=== PATIENT | male | born 1940 | race Caucasian/White ===

== ENCOUNTER 2020-06-23 09:26 | Inpatient (IN) ==
[2020-06-23] MEDS ORDERED: 0.9 % SODIUM CHLORIDE 1,000 ML IV ONE ×4 (09:41→16:31)
[2020-06-23] MEDS ORDERED: HYDROmorphone 0.5 MG/0.5 ML SYRINGE IV PRN (09:44)
[2020-06-23] MEDS ORDERED: ONDANSETRON 4 MG/2 ML VIAL IV ONE (09:44)
[2020-06-23] MEDS ORDERED: LEVOFLOXACIN 500 MG/100 ML BAG IV ONE (10:09)
--- NOTE | 2020-06-23 10:12 | Emergency Department Note ---
Male Urogenital HPI General Chief complaint: Urogenital-Male Stated complaint: possible UTI, elevated HR, sent from minor care. Time Seen by Provider: 06/23/20 09:42 Source: patient Mode of arrival: wheelchair Limitations: no limitations History of Present Illness HPI Narrative: Narrative: This 79-year-old gentleman was sent over for a fever of 101.5 at home. He was afebrile however at urgent care -Dr. Toth saw him there and sent him over out of concern for possible urosepsis as he was quite tachycardic in the 130s. Danitza rapid test for influenza a and B and Covid were all negative at urgent care. He denies any shortness of breath trouble breathing. He was actually initially seen 4 days ago for fecal impaction which is since resolved-with enema. He had urinary retention with that. He is now urinating well Related Data Home Medications Medication Instructions Recorded Confirmed omega-3 fatty acids 4,000 mg PO DAILY 03/29/19 06/23/20 vitamin B complex 1 each PO DAILY 03/29/19 06/23/20 acetaminophen 650 mg 650 mg PO Q12H 02/20/20 06/23/20 tablet,extended release loratadine 10 mg capsule 10 mg PO QDAY 05/13/20 06/23/20 Previous Rx's Medication Instructions Recorded fluticasone propionate 50 2 spray INTRANASAL QDAY #16 g 08/01/18 mcg/actuation nasal spray,suspension Allergies Allergy/AdvReac Type Severity Reaction Status Date / Time latex Allergy Intermediate Rash Verified 06/20/20 18:37 pseudoephedrine Allergy Intermediate Rash Verified 06/20/20 18:37 [From Actifed] shellfish derived Allergy Intermediate Swelling Verified 06/20/20 18:37 triprolidine [From Actifed] Allergy Intermediate Rash Verified 06/20/20 18:37 Review of Systems ROS ROS Narrative: Narrative: All systems ED: reviewed and negative except as stated. 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) Obstructive sleep apnea syndrome (Chronic) Erectile dysfunction (Chronic) DM type 2 (diabetes mellitus, type 2) (Chronic) Hx of colonoscopy (Chronic 03/28/14) Hx of cholecystectomy (Chronic) Hx of arthroscopy (Chronic) Hx of arthroplasty (Chronic) History of tobacco use (Chronic) Sleep apnea (Chronic) Generalized osteoarthrosis, 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 Hemorrhoid (Chronic) Hemorrhoids, external (Chronic) 04/03/14-Dr. Hernandez patient will use OTC fiber powder since this has helped in the past. Avoid constipation/keep stools loose if ongoing pain, no improvement, can refer to surgery for intervention High triglycerides (Chronic) Mild, improved with fish oil; [facility] with LDL cholesterol acceptable and not requiring reinstitution. History of tobacco use (Chronic) Distant minimal ex smoker, last chest x-ray in 2008 Hyperlipidemia (Chronic) Impacted cerumen (Chronic) Medicare annual wellness visit, subsequent (Resolved) Obesity (Chronic) Obstructive sleep apnea syndrome (Chronic) Pulmonary embolism and infarction (Chronic) Pure hyperglyceridemia (Resolved 05/22/13) Sensory hearing loss (Chronic) Sleep apnea (Chronic) with positive sleep study in February of 2012-Dr. Ranjan Jerry. gets benefit with machine. reports use 100%. able to get 8 hours of rested sleep. no daytime fatigue will send refill replacement request to [facility] History History of left shoulder replacement (Acute) History of orthopedic surgery (Chronic 02/22/17) Bilateral foot/ankle fusion, removal hardware History of total bilateral knee replacement (Chronic ~2011) Hx of arthroplasty (Chronic) July of 2011-Right knee, Left knee in December Hx of arthroscopy (Chronic) Status post arthroscopy on right shoulder in 2007 Hx of cholecystectomy (Chronic) Status post open cholecystectomy in 2002 with isolated post op pulmonary embolus,anticoagulated to September of 2003; lower extremity Doppler normal in August of 2007. Hx of colonoscopy (Chronic 03/28/14) 03/28/14-11/21/06-Normal colon, internal hemorrhoids ten year sequencing with Dr. Abreu Family History Brother Diabetes mellitus Half brother Other Cerebrovascular accident (CVA) Social History Smoking Status: Former smoker Alcohol Intake Frequency: former alcohol drinker Substance Use: does not use Exam Narrative Narrative: Narrative: No acute distress resting comfortably. Able to answer questions appropriately. He is normocephalic atraumatic. Alert oriented. Conjunctive are clear sclerae white nonicteric. No nasal discharge or congestion. Oropharynx pink and moist. Neck is supple without lymphadenopathy or thyromegaly. Heart is regular rhythm but he is tachycardic both on the monitor and with auscultation. Lungs are clear to auscultation bilaterally with out wheezes rales rhonchi or respiratory distress. Abdomen is soft protuberant nontender. No peritoneal signs or guarding. No significant pedal edema. General Limitations: no limitations Course Vital Signs Vital signs: Vital Signs Temperature 96.8 F L 06/23/20 09:26 Pulse Rate 150 H 06/23/20 09:26 Respiratory Rate 20 06/23/20 09:26 Blood Pressure 178/144 06/23/20 09:26 Pulse Oximetry (%) 97 06/23/20 09:26 Temperature 96.8 F L 06/23/20 09:26 Pulse Rate 101 H 06/23/20 12:47 Respiratory Rate 18 06/23/20 12:47 Blood Pressure 107/96 06/23/20 12:47 Pulse Oximetry (%) 98 06/23/20 12:47 MDM MDM Narrative Medical decision making narrative: Narrative: He is currently afebrile and normoxic but he is significantly tachycardic. 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 We did a bladder scan and he only had 86 mL in. Ordered laboratory. X-rays ordered to check on stool burden. Blood cultures and start Levaquin-suspect prostatitis versus UTI with possible sepsis versus SIRS. Urine POC showed evidence of nitrites and leukocytes so this is sent for microscopy and culture. Elevated lactic acid and leukocytes consistent with sepsis-he will require admission. He remains tachycardic although less so with IV fluids and treatment. Blood pressure is normal and he remains. Blood sugar was elevated on laboratory, but he is a known diabetic and this is before fluids were started-this will likely decrease with hydration so did not give insulin. Procalcitonin is markedly elevated Discussed with hospitalist, Dr. Ramirez who agreed to accept the patient for further care and evaluation. He recommended we add Rocephin to the Levaquin. I will repeat the lactic acid now that he has had a couple liters of IV fluid. Lab Data Lab results reviewed: Yes I reviewed the patient's lab results. Result diagrams: 06/23/20 09:41 06/23/20 09:41 Labs: Lab Results 06/23/20 06/23/20 06/23/20 Range/Units 09:41 09:41 09:41 WBC 22.1 H (4.5-11.0) K/mcL RBC 5.22 (4.50-5.90) M/mcL Hgb 16.1 (13.5-16.5) g/dL Hct 48.4 (41.0-55.0) % MCV 92.7 (80.0-100.0) fL MCH 30.8 (26.0-34.0) pg MCHC 33.3 (31.0-36.0) g/dL RDW 12.9 (11.5-14.5) % Plt Count 271 (140-440) K/mcL MPV 10.5 H (7.4-10.4) fL Seg Neutrophils % 77 (38-78) % Band Neutrophils % 5 (0-10) % Lymphocytes % 9 L (15-49) % Monocytes % (Manual) 8 (1-12) % Myelocytes % 1 % Platelet Estimate Normal (Normal) RBC Morphology Normal (Normal) VBG Lactic Acid 4.0 H* (0.5-2.0) mmol/L Sodium 131 L (133-145) mmol/L Potassium 4.0 (3.3-5.1) mmol/L Chloride 97 (96-108) mmol/L Carbon Dioxide 19 L (22-30) mmol/L Anion Gap 15.0 (8.0-16.0) BUN 16 (8-23) mg/dL Creatinine 1.1 (0.7-1.2) mg/dL GFR Calculation 64 Glucose 336 H (70-105) mg/dL Calcium 9.6 (8.6-10.4) mg/dL Total Bilirubin 1.3 H (0.1-1.0) mg/dL AST 22 (<40) U/L ALT 31 (<40) U/L Alkaline Phosphatase 78 (39-117) U/L C-Reactive Protein (0.03-0.80) mg/dL Total Protein 7.7 (5.9-8.4) gm/dL Albumin 3.8 (3.2-5.2) gm/dL Globulin 3.9 H (2.2-3.7) gm/dL Albumin/Globulin Ratio 1.0 (1.0-2.3) Lipase (7-60) U/L Procalcitonin (<0.10) ng/mL Urine Color Urine Appearance (Clear) Urine pH (5.0-9.0) Ur Specific [place] (1.000-1.035) Urine Protein (Negative) mg/dL Urine Glucose (UA) (Negative) mg/dL Urine Ketones (Negative) mg/dL Urine Occult Blood (Negative) mg/dL Urine Nitrate (Negative) Urine Bilirubin (Negative) mg/dL Urine Urobilinogen mg/dL Ur Leukocyte Esterase (Negative) /ug Urine RBC (0-3) /hpf Urine WBC (0-4) /hpf Ur Squamous Epith Cells (0-4) /hpf Urine Bacteria (0) /hpf Hyaline Casts (0-2) /lph Urine Mucus (None) /hpf Ur Culture Indicated? 06/23/20 06/23/20 06/23/20 Range/Units 09:41 10:47 11:10 WBC (4.5-11.0) K/mcL RBC (4.50-5.90) M/mcL Hgb (13.5-16.5) g/dL Hct (41.0-55.0) % MCV (80.0-100.0) fL MCH (26.0-34.0) pg MCHC (31.0-36.0) g/dL RDW (11.5-14.5) % Plt Count (140-440) K/mcL MPV (7.4-10.4) fL Seg Neutrophils % (38-78) % Band Neutrophils % (0-10) % Lymphocytes % (15-49) % Monocytes % (Manual) (1-12) % Myelocytes % % Platelet Estimate (Normal) RBC Morphology (Normal) VBG Lactic Acid (0.5-2.0) mmol/L Sodium (133-145) mmol/L Potassium (3.3-5.1) mmol/L Chloride (96-108) mmol/L Carbon Dioxide (22-30) mmol/L Anion Gap (8.0-16.0) BUN (8-23) mg/dL Creatinine (0.7-1.2) mg/dL GFR Calculation Glucose (70-105) mg/dL Calcium (8.6-10.4) mg/dL Total Bilirubin (0.1-1.0) mg/dL AST (<40) U/L ALT (<40) U/L Alkaline Phosphatase (39-117) U/L C-Reactive Protein 39.30 H (0.03-0.80) mg/dL Total Protein (5.9-8.4) gm/dL Albumin (3.2-5.2) gm/dL Globulin (2.2-3.7) gm/dL Albumin/Globulin Ratio (1.0-2.3) Lipase 16 (7-60) U/L Procalcitonin 5.40 H (<0.10) ng/mL Urine Color Gabrielle Urine Appearance Hazy A (Clear) Urine pH 5.0 (5.0-9.0) Ur Specific [place] 1.032 (1.000-1.035) Urine Protein 100 A (Negative) mg/dL Urine Glucose (UA) >=500 A (Negative) mg/dL Urine Ketones 20 A (Negative) mg/dL Urine Occult Blood 0.03 (Negative) mg/dL Urine Nitrate Negative (Negative) Urine Bilirubin Negative (Negative) mg/dL Urine Urobilinogen Negative mg/dL Ur Leukocyte Esterase 75 A (Negative) /ug Urine RBC 11 H (0-3) /hpf Urine WBC > 182 H (0-4) /hpf Ur Squamous Epith Cells < 1 (0-4) /hpf Urine Bacteria Many A (0) /hpf Hyaline Casts 39 H (0-2) /lph Urine Mucus Many A (None) /hpf Ur Culture Indicated? yes Radiology Data Radiology results reviewed: Yes I reviewed the patient's radiology results. Radiology results narrative: X-ray of the abdomen shows normal stool burden and resolution of constipation. No evidence of mechanical bowel obstruction EKG Data EKG #1: EKG attestation: Yes I reviewed and interpreted this EKG. and Yes There are no EKG findings of acute coronary syndrome EKG results narrative: EKG shows sinus tachycardia with multiple PVCs. Fi rst-degree AV block is noted. Left anterior fascicular block. I looked at a previous EKG on him from 2019 and note that the left anterior fascicular block is new EKG shows normal: sinus rhythm Rate: tachycardia Discharge Plan Patient/Caregiver Discharge Instructions Pt seen by SENIOR TECHNICAL ANALYST/PA only: No Clinical Impression: Acute UTI, Acute dehydration, Acute hyperglycemia Sepsis Qualifiers: Sepsis type: sepsis due to unspecified organism Sepsis acute organ dysfunction status: unspecified Qualified Code(s): A41.9 - Sepsis, unspecified organism Patient Disposition: Xfer As Inpt ([facility]) Condition: Fair Follow up with: Yong Gonzalez MD [Primary Care Provider] - Prescriptions: No Action acetaminophen [Tylenol Arthritis Pain] 650 mg tablet extended release 650 mg PO Q12H RF: 0 loratadine 10 mg capsule 10 mg PO QDAY RF: 0 fluticasone propionate [Flonase Allergy Relief] 50 mcg/actuation spray,suspension 2 spray INTRANASAL QDAY Qty: 16 RF: 0 omega-3 fatty acids 1,000 MG capsule 4,000 mg PO DAILY RF: 0 vitamin B complex 1 EACH tablet 1 each PO DAILY RF: 0
--- NOTE | 2020-06-23 10:45 | XRay Report ---
INDICATION: hx of fecal impaction TECHNIQUE: Supine and upright abdomen. COMPARISON: None FINDINGS:Bowel gas pattern is unremarkable. No dilated gas-filled small bowel. No evidence for mechanical small bowel obstruction. Colon is negative. Fecal volume appears normal. No pneumoperitoneum. No biliary or portal venous gas. No pneumatosis. Multilevel degenerative disc disease in the lower lumbar spine IMPRESSION: Negative supine and upright abdomen Interpreted and Authenticated by: Rolf Mixon 06/23/20
[2020-06-23 10:47] LABS: Hematocrit 48.4 % (41.0-55.0); Hemoglobin 16.1 g/dL (13.5-16.5); Mean Cell Volume 92.7 fL (80.0-100.0); Mean Corpuscular HGB Conc 33.3 g/dL (31.0-36.0); Mean Platelet Volume 10.5 fL (7.4-10.4); Platelet Count 271 K/mcL (140-440); RBC 5.22 M/mcL (4.50-5.90); Red Cell Distribution Width 12.9 % (11.5-14.5); WBC 22.1 K/mcL (4.5-11.0)
[2020-06-23 11:11] LABS: ALT/SGPT 31 U/L (<40); AST/SGOT 22 U/L (<40); Albumin 3.8 gm/dL (3.2-5.2); Alkaline Phosphatase 78 U/L (39-117); Bilirubin,Total 1.3 mg/dL (0.1-1.0); Blood Urea Nitrogen 16 mg/dL (8-23); Calcium 9.6 mg/dL (8.6-10.4); Carbon Dioxide 19 mmol/L (22-30); Chloride 97 mmol/L (96-108); Globulin 3.9 gm/dL (2.2-3.7); Glomerular Filtration Rate 64; Glucose 336 mg/dL (70-105)
[2020-06-23 11:28] LABS: Band Neutrophils % 5 % (0-10); Lymphocytes % 9 % (15-49); Monocytes % (Manual) 8 % (1-12); Myelocytes % 1 %; Platelet Estimate NORMAL (Normal); RBC Morphology NORMAL (Normal); Segmented Neutrophils % 77 % (38-78)
[2020-06-23 12:01] LABS: C-Reactive Protein 39.3 mg/dL (0.03-0.80)
[2020-06-23] MEDS ORDERED: cefTRIAXone 1 GM VIAL IV ONE ×2 (12:22→14:15)
--- NOTE | 2020-06-23 12:40 | Internal Med History&Physical ---
HPI History of Present Illness Patient information: Note initiated : 06/23/20 at 12:39 pm Service Date, if different from initiated Date: [] Patient: Zeyad Pack a 79 y/o M admitted on for Possible UTI, Elevated HR, Sent From [facility].. Chief Complaint: [] History of present illness: Mr. Pack is a 79 year old M who lives with his in [place] and has been fairly healthy at baseline. He was evaluated in the ER on 06/20 with complaints of urine retention/constipation which resolved following enema. Patient was discharged home however over the last couple of days he has noted increasing dysuria/urinary frequency along with fever ass ociated with intense rigors/sweats and chills. Symptoms progressed with generalized malaise/lethargic/fatigued and associated loss of appetite. Patient presents to the ER for further evaluation after he was seen at primary care physician's office hypotensive febrile tachycardic with signs suggestive of sepsis During initial evaluation in the ER patient was noted to be tachycardic and mid 140s. White count 22,000, lactic acid 4.5, sodium 131 and creatinine 1.1 along with blood sugar 336. UA significant for pyuria Patient was started on antibiotics after cultures were drawn. Crystalloids were administered. Subsequently hospitalist service was consulted for admission At the time of my evaluation patient is alert and oriented. He is much more alert and feels better after crystalloid boluses and antibiotics. He was able to endorse history as above. He feels that the catheterization during the ER visit led to his urine infection. He denies prior obstructive uropathy/urinary stone/prostate issues or difficulty urination. He denies weight loss, rash, joint pain headache or photophobia Review of systems A 10 point review system was performed and is negative except for ones discussed above PFSH PFSH All Active Problems (Updated 06/23/20 @ 11:49 by Man Tracey MD) Acute UTI (Acute) Sepsis (Acute) Acute dehydration (Acute) Acute hyperglycemia (Acute) Fever (Acute) Acute urinary retention (Acute) Fecal impaction (Acute) Dysfunction of eustachian tube (Acute) History of constipation (Acute) Internal and external hemorrhoids without complication (Acute) Hemorrhoid (Chronic) Influenza vaccine refused (Chronic) Impacted cerumen (Chronic) Obesity (Chronic) Hyperlipidemia (Chronic) 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) Obstructive sleep apnea syndrome (Chronic) Erectile dysfunction (Chronic) DM type 2 (diabetes mellitus, type 2) (Chronic) Hx of colonoscopy (Chronic 03/28/14) Hx of cholecystectomy (Chronic) Hx of arthroscopy (Chronic) Hx of arthroplasty (Chronic) History of tobacco use (Chronic) Sleep apnea (Chronic) Generalized osteoarthrosis, 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 Hemorrhoid (Chronic) Hemorrhoids, external (Chronic) 04/03/14-Dr. Hernandez patient will use OTC fiber powder since this has helped in the past. Avoid constipation/keep stools loose if ongoing pain, no improvement, can refer to surgery for intervention High triglycerides (Chronic) Mild, improved with fish oil; [facility] with LDL cholesterol acceptable and not requiring reinstitution. History of tobacco use (Chronic) Distant minimal ex smoker, last chest x-ray in 2008 Hyperlipidemia (Chronic) Impacted cerumen (Chronic) Medicare annual wellness visit, subsequent (Resolved) Obesity (Chronic) Obstructive sleep apnea syndrome (Chronic) Pulmonary embolism and infarction (Chronic) Pure hyperglyceridemia (Resolved 05/22/13) Sensory hearing loss (Chronic) Sleep apnea (Chronic) with positive sleep study in February of 2012-Dr. Claritza Pluto. gets benefit with machine. reports use 100%. able to get 8 hours of rested sleep. no daytime fatigue will send refill replacement request to [facility] History History of left shoulder replacement (Acute) History of orthopedic surgery (Chronic 02/22/17) Bilateral foot/ankle fusion, removal hardware History of total bilateral knee replacement (Chronic ~2011) Hx of arthroplasty (Chronic) July of 2011-Right knee, Left knee in December Hx of arthroscopy (Chronic) Status post arthroscopy on right shoulder in 2007 Hx of cholecystectomy (Chronic) Status post open cholecystectomy in 2002 with isolated post op pulmonary embolus,anticoagulated to September of 2003; lower extremity Doppler normal in August of 2007. Hx of colonoscopy (Chronic 03/28/14) 03/28/14-11/21/06-Normal colon, internal hemorrhoids ten year sequencing with Dr. Abreu Family History Brother Diabetes mellitus Half brother Other Cerebrovascular accident (CVA) Social History household members: spouse housing: house lives independently: Yes marital status: occupational status: retired smoking status: Former smoker quit date: 05/16/89 smoking status stop date: 05/16/99 alcohol intake frequency: former alcohol drinker substance use type: does not use MEDS/ALLERGIES Home Medications and Allergies Home Medications Medication Instructions Recorded Confirmed Type fluticasone propionate 50 2 spray INTRANASAL QDAY #16 g 08/01/18 06/23/20 Rx mcg/actuation nasal spray,suspension omega-3 fatty acids 4,000 mg PO DAILY 03/29/19 06/23/20 History vitamin B complex 1 each PO DAILY 03/29/19 06/23/20 History acetaminophen 650 mg 650 mg PO Q12H 02/20/20 06/23/20 History tablet,extended release loratadine 10 mg capsule 10 mg PO QDAY 05/13/20 06/23/20 History Allergies Allergy/AdvReac Type Severity Reaction Status Date / Time latex Allergy Intermediate Rash Verified 06/20/20 18:37 pseudoephedrine Allergy Intermediate Rash Verified 06/20/20 18:37 [From Actifed] shellfish derived Allergy Intermediate Swelling Verified 06/20/20 18:37 triprolidine [From Actifed] Allergy Intermediate Rash Verified 06/20/20 18:37 EXAM Constitutional Vitals: Temp Pulse Resp BP Pulse Ox 96.8 F L 102 H 14 115/68 94 06/23/20 09:26 06/23/20 12:17 06/23/20 12:17 06/23/20 12:17 06/23/20 12:17 Alert oriented minimal anxiety Head normocephalic Oral cavity moist No ear nose discharge Eye movement symmetrical Neck supple no lymphadenopathy S1-S2 tachycardia Nonlabored breathing Nondistended nontender abdomen Lower extremity no cyanosis clubbing or joint swelling Skin no suspicious lesion Psych alert oriented Neuro normal higher function DATA Data Completed and Pending Labs: Labs from last 24 hours 06/23/20 06/23/20 06/23/20 11:10 10:47 09:41 WBC RBC Hgb Hct MCV MCH MCHC RDW Plt Count MPV Seg Neutrophils % Band Neutrophils % Lymphocytes % Monocytes % (Manual) Myelocytes % Platelet Estimate RBC Morphology VBG Lactic Acid Sodium Potassium Chloride Carbon Dioxide Anion Gap BUN Creatinine GFR Calculation Glucose Calcium Total Bilirubin AST ALT Alkaline Phosphatase C-Reactive Protein 39.30 H Total Protein Albumin Globulin Albumin/Globulin Ratio Lipase 16 Procalcitonin 5.40 H Urine Color Pending Urine Appearance Pending Urine pH Pending Ur Specific [place] Pending Urine Protein Pending Urine Glucose (UA) Pending Urine Ketones Pending Urine Occult Blood Pending Urine Nitrate Pending Urine Bilirubin Pending Urine Urobilinogen Pending Ur Leukocyte Esterase Pending 06/23/20 06/23/20 06/23/20 09:41 09:41 09:41 WBC 22.1 H RBC 5.22 Hgb 16.1 Hct 48.4 MCV 92.7 MCH 30.8 MCHC 33.3 RDW 12.9 Plt Count 271 MPV 10.5 H Seg Neutrophils % 77 Band Neutrophils % 5 Lymphocytes % 9 L Monocytes % (Manual) 8 Myelocytes % 1 Platelet Estimate Normal RBC Morphology Normal VBG Lactic Acid 4.0 H* Sodium 131 L Potassium 4.0 Chloride 97 Carbon Dioxide 19 L Anion Gap 15.0 BUN 16 Creatinine 1.1 GFR Calculation 64 Glucose 336 H Calcium 9.6 Total Bilirubin 1.3 H AST 22 ALT 31 Alkaline Phosphatase 78 C-Reactive Protein Total Protein 7.7 Albumin 3.8 Globulin 3.9 H Albumin/Globulin Ratio 1.0 Lipase Procalcitonin Urine Color Urine Appearance Urine pH Ur Specific [place] Urine Protein Urine Glucose (UA) Urine Ketones Urine Occult Blood Urine Nitrate Urine Bilirubin Urine Urobilinogen Ur Leukocyte Esterase A/P Narrative A/P Narrative: * Severe sepsis with endorgan dysfunction with elevated creatinine/bilirubin/tachycardia. Likely secondary to complicated UTI/pyelonephritis. Pancultures/antibiotic coverage and de-escalate based on sensitivities. Venous lactate trending/crystalloids and pressors if indicated * Complicated UTI, rule out obstructive uropathy with renal ultrasound. Await cultures * Elevated bilirubin/elevated creatinine secondary to sepsis endorgan dysfunction * Hyperglycemia no prior history of diabetes. Check A1c./Sliding scale insulin. * prophylaxis Heparin Plan * Inpatient monitored unit admission * Broad antibiotic coverage/sepsis management per guidelines * Monitor renal function * PT OT nutrition support * Discharge planning Time Spent With Patient Time: Total time spent is greater than 50% in coordination of care (as d ocumented) at patient's floor/unit and/or counseling patient:
[2020-06-23 12:51] LABS: Appearance,Urine HAZY (Clear); Bacteria,Urine MANY /hpf (0); Bilirubin,Urine Negative (Negative); Color,Urine AMBER; Culture Indicated,Urine yes; Glucose,Urine (UA) >=500 mg/dL (Negative); Ketones,Urine 20 mg/dL (Negative); Leukocyte Esterase,Urine 75 /ug (Negative); Mucus,Urine MANY /hpf; Nitrate,Urine Negative (Negative); Protein,Urine 100 mg/dL (Negative); Specific Gravity,Urine 1.032 (1.000-1.035); Urine Blood 0.03 mg/dL (Negative); Urine Hyaline Cast 39 /lph (0-2); Urine RBC 11 /hpf (0-3); Urine Squamous Epithelial Cell < 1 /hpf (0-4); Urine WBC > 182 /hpf (0-4); Urobilinogen,Urine Negative
[2020-06-23] MEDS ORDERED: ONDANSETRON 4 MG/2 ML VIAL IV PRN (13:54)
[2020-06-23] MEDS ORDERED: MAGNESIUM SULFATE 2 GM/50 ML BAG IV PRN (13:54)
[2020-06-23] MEDS ORDERED: POTASSIUM CHLORIDE 20 MEQ PACKET PO PRN (13:54)
[2020-06-23] MEDS ORDERED: NOREPINEPHRINE BITARTRATE 8 MG in 0.9 % SODIUM CHLORIDE 242 ML IV PRN (13:54)
[2020-06-23] MEDS ORDERED: ACETAMINOPHEN 650 MG/65 ML BAG IV PRN (13:54)
[2020-06-23] MEDS ORDERED: POLYETHYLENE GLYCOL 3350 17 GM PACKET PO PRN (13:54)
[2020-06-23] MEDS ORDERED: ONDANSETRON 4 MG ODT TABLET SL PRN (13:54)
[2020-06-23] MEDS ORDERED: BISACODYL 10 MG SUPP.RECT PR PRN (13:54)
[2020-06-23] MEDS ORDERED: POTASSIUM CHLORIDE 40 MEQ in DEXTROSE 5% IN WATER 500 ML IV PRN (13:54)
[2020-06-23] MEDS ORDERED: DEXTROSE 31 GM ORAL.SUSP PO PRN (14:11)
[2020-06-23] MEDS ORDERED: DEXTROSE 50% 50 ML VIAL IV PRN (14:11)
[2020-06-23] MEDS ORDERED: LEVOFLOXACIN 250 MG/50 ML BAG IV ONE (14:15)
[2020-06-23] MEDS: ACETAMINOPHEN 325 MG TABLET PO PRN ×2 (14:51→19:38)
[2020-06-23] MEDS: 0.9 % SODIUM CHLORIDE 10 ML SYRINGE IV SCH ×2 (14:53→20:05)
[2020-06-23] MEDS: 0.9 % SODIUM CHLORIDE 1,000 ML IV SCH (15:02)
[2020-06-23] MEDS: 0.9 % SODIUM CHLORIDE 250 ML IV SCH (15:02)
--- NOTE | 2020-06-23 15:14 | Ultrasound Report ---
INDICATION: r/o obstr uropathy TECHNIQUE: Grayscale and color flow Doppler spectral imaging. COMPARISON: None. FINDINGS: Right kidney: Right kidney [id number] x 7.2 x 6.9 cm. There is no hydronephrosis. No solid right renal mass. Right cortex is mildly echogenic which may be secondary to medical renal disease. No detectable calculi. Left kidney: Left kidney .5 x 6.6 x 6.5 cm. There is no hydronephrosis. No solid left renal mass. Left renal cortex is slightly echogenic which may be consistent with medical renal disease. No detectable calculi. Bladder: Prevoid bladder [id number]. No bladder calculi. No detectable mass. Bilateral ureteral jets visualized. Prostate is enlarged. Estimated prostatic volume is 80 mL IMPRESSION: 1. Mildly echogenic kidneys consistent with medical renal disease 2. No hydronephrosis 3. Prostatic enlargement Interpreted and Authenticated by: Rolf Mixon 06/23/20
[2020-06-23 15:43] LABS: Hemoglobin A1C 7.8 % Hgb (4.0-6.0)
[2020-06-23] MEDS: INSULIN LISPRO 1 UNIT/0.01 ML UNIT SQ SCH ×2 (16:33→20:06)
[2020-06-23] MEDS: DOCUSATE SODIUM 100 MG CAPSULE PO SCH (20:05)
[2020-06-23] MEDS: HEPARIN 5,000 UNIT/ML VIAL SQ SCH (20:09)
[2020-06-23] MEDS ORDERED: MELATONIN 3 MG TABLET PO PRN (21:00)
[2020-06-23] MEDS ORDERED: SENNOSIDES/DOCUSATE SODIUM 1 TAB TABLET PO SCH (21:00)
[2020-06-24] MEDS: ACETAMINOPHEN 325 MG TABLET PO PRN ×4 (03:19→21:03)
[2020-06-24] MEDS: 0.9 % SODIUM CHLORIDE 250 ML IV SCH (03:25)
[2020-06-24] MEDS: 0.9 % SODIUM CHLORIDE 10 ML SYRINGE IV SCH ×3 (05:48→22:06)
[2020-06-24 06:31] LABS: Basophils # (Auto) 0.02 K/mcL (0.00-0.20); Basophils % (Auto) 0.1 % (0.0-2.0); Eosinophils # (Auto) 0.01 K/mcL (0.00-0.70); Eosinophils % (Auto) 0.1 % (0.0-7.0); Hematocrit 39.9 % (41.0-55.0); Hemoglobin 13.2 g/dL (13.5-16.5); Lymphocytes # (Auto) 1.05 K/mcL (1.50-4.80); Lymphocytes % (Auto) 6.2 % (15.0-49.0); Mean Cell Volume 92.4 fL (80.0-100.0); Mean Corpuscular HGB Conc 33.1 g/dL (31.0-36.0); Mean Platelet Volume 10.5 fL (7.4-10.4); Monocytes # (Auto) 0.94 K/mcL (0.10-0.90); Monocytes % (Auto) 5.6 % (1.0-12.0); Platelet Count 191 K/mcL (140-440); RBC 4.32 M/mcL (4.50-5.90); WBC 16.9 K/mcL (4.5-11.0)
[2020-06-24 07:24] LABS: ALT/SGPT 47 U/L (<40); AST/SGOT 47 U/L (<40); Albumin 2.9 gm/dL (3.2-5.2); Albumin/Globulin Ratio 1.1 (1.0-2.3); Alkaline Phosphatase 95 U/L (39-117); Bilirubin,Direct < 0.2 mg/dL (<0.3); Bilirubin,Total 0.4 mg/dL (0.1-1.0); Blood Urea Nitrogen 20 mg/dL (8-23); Calcium 8.4 mg/dL (8.6-10.4); Carbon Dioxide 20 mmol/L (22-30); Chloride 105 mmol/L (96-108); Globulin 2.6 gm/dL (2.2-3.7); Glomerular Filtration Rate 81; Glucose 168 mg/dL (70-105); Lactate Dehydrogenase 226 U/L (135-225); Phosphorous 2.8 mg/dL (2.5-4.5); Triglycerides 197 mg/dL (<150); Uric Acid 4.8 mg/dL (2.5-8.0)
[2020-06-24] MEDS ORDERED: metFORMIN 500 MG TABLET PO SCH (08:00)
[2020-06-24] MEDS: DOCUSATE SODIUM 100 MG CAPSULE PO SCH ×2 (08:01→08:22)
[2020-06-24] MEDS: INSULIN LISPRO 1 UNIT/0.01 ML UNIT SQ SCH ×4 (08:07→21:07)
[2020-06-24] MEDS: HEPARIN 5,000 UNIT/ML VIAL SQ SCH ×2 (08:07→21:07)
[2020-06-24] MEDS ORDERED: cefTRIAXone 2 GM in DEXTROSE 5% IN WATER 50 ML IV SCH (09:00)
[2020-06-24] MEDS ORDERED: LORATADINE 10 MG TABLET PO SCH (09:00)
[2020-06-24] MEDS ORDERED: MULTIVIT,THER IRON,CA,FA & MIN 1 TABLET PO SCH (09:00)
[2020-06-24] MEDS ORDERED: FLUTICASONE PROPIONATE SPRAY.NAS NS SCH (09:00)
[2020-06-24] MEDS ORDERED: LEVOFLOXACIN 750 MG/150 ML BAG IV SCH (10:00)
--- NOTE | 2020-06-24 10:39 | Internal Med Progress Note ---
SUBJECTIVE Subjective Patient information: Note initiated : 06/24/20 at 10:37 am Service Date, if different from initiated Date: [] Patient: Zeyad Pack a 79 y/o M admitted on 06/23/20 for Possible UTI, Elevated HR, Sent From [facility].. Chief Complaint: [] Interval history: History of present illness: Mr. Pack is a 79 year old M who lives with his in [place] and has been fairly healthy at baseline. He was evaluated in the ER on 06/20 with complaints of urine retention/constipation which resolved following enema. Patient was discharged home however over the last couple of days he has noted increasing dysuria/urinary frequency along with fever associated with intense rigors/sweats and chills. Symptoms progressed with generalized malaise/lethargic/fatigued and associated loss of appetite. Patient presents to the ER for further evaluation after he was seen at primary care physician's office hypotensive febrile tachycardic with signs suggestive of sepsis During initial evaluation in the ER patient was noted to be tachycardic and mid 140s. White count 22,000, lactic acid 4.5, sodium 131 and creatinine 1.1 along with blood sugar 336. UA significant for pyuria Patient was started on antibiotics after cultures were drawn. Crystalloids were administered. Subsequently hospitalist service was consulted for admission At the time of my evaluation patient is alert and oriented. He is much more alert and feels better after crystalloid boluses and antibiotics. He was able to endorse history as above. He feels that the catheterization during the ER visit led to his urine infection. He denies prior obstructive uropathy/urinary stone/prostate issues or difficulty urination. He denies weight loss, rash, joint pain headache or photophobia 06/24-patient doing better. T-max 101. On antibiotic coverage. Blood pressures at goal. No telemetry events. A1c 7.8. Started on Metformin. No evidence of obstructive uropathy on abdominal imaging. Transition to medical floor. Continue antibiotic coverage/therapy/dietary interventions. Improved white count at 16.9 from 22, lactate normalized, creatinine down from 1.12.9. Cultures negative so far. Constitutional Vitals: Vital Signs Temp Pulse Resp BP Pulse Ox 99.0 F 95 H 11 L 122/74 95 06/24/20 08:01 06/23/20 13:31 06/24/20 08:01 06/24/20 10:01 06/24/20 10:01 Period Temp Pulse Resp BP Sys/Duong Pulse Ox Last 24 Hr 97.6 F-100.5 F 92-109 11-31 94-138/54-96 90-98 Intake and Output 06/23/20 06/24/20 06/24/20 21:59 05:59 13:59 Intake Total 1149 860 360 Output Total 300 425 Balance 849 435 360 Weight 113.489 kg Alert oriented Nonlabored breathing Nondistended abdomen No telemetry events Intake & Output: Intake & Output 06/23/20 06/24/20 06/24/20 21:59 05:59 13:59 Intake Total 1149 860 360 Output Total 300 425 Balance 849 435 360 Weight 113.489 kg Intake: IV 1149 Sodium Chloride 0.9% 1,000 ml @ 1099 Wide Open IV [facility] Rx#: [id number] Oral 860 360 Output: Void Amount 300 425 Other: Meal Nourishment/Supplement Breakfast Percent of Meal Consumed 100% Urine Appearance Clear Clear Urine Color Dark Yellow Dark Gabrielle Urine Odor Strong Strong Stool Size Copious Stool Color Brown Stool Consistency Loose # Bowel Movements 1 OBJ DATA Labs CBC & Chem 7: 06/24/20 04:59 06/24/20 04:59 Labs: Abnormal Lab Results 06/24/20 06/24/20 06/23/20 04:59 04:59 11:10 WBC 16.9 H RBC 4.32 L Hgb 13.2 L Hct 39.9 L MPV 10.5 H Neut % (Auto) 88.0 H Lymph % (Auto) 6.2 L Lymph # (Auto) 1.05 L [place] # (Auto) 0.94 H Lymphocytes % Absolute Neutrophils 14.88 H VBG Lactic Acid Sodium Carbon Dioxide 20 L Glucose 168 H Hemoglobin A1c Calcium 8.4 L Total Bilirubin AST 47 H ALT 47 H Lactate Dehydrogenase 226 H C-Reactive Protein Total Protein 5.5 L Albumin 2.9 L Globulin Triglycerides 197 H Procalcitonin Urine Appearance Hazy A Urine Protein 100 A Urine Glucose (UA) >=500 A Urine Ketones 20 A Ur Leukocyte Esterase 75 A Urine RBC 11 H Urine WBC > 182 H Urine Bacteria Many A Hyaline Casts 39 H Urine Mucus Many A 06/23/20 06/23/20 06/23/20 10:47 09:41 09:41 WBC RBC Hgb Hct MPV Neut % (Auto) Lymph % (Auto) Lymph # (Auto) [place] # (Auto) Lymphocytes % Absolute Neutrophils VBG Lactic Acid Sodium Carbon Dioxide Glucose Hemoglobin A1c 7.8 H Calcium Total Bilirubin AST ALT Lactate Dehydrogenase C-Reactive Protein 39.30 H Total Protein Albumin Globulin Triglycerides Procalcitonin 5.40 H Urine Appearance Urine Protein Urine Glucose (UA) Urine Ketones Ur Leukocyte Esterase Urine RBC Urine WBC Urine Bacteria Hyaline Casts Urine Mucus 06/23/20 06/23/20 06/23/20 09:41 09:41 09:41 WBC 22.1 H RBC Hgb Hct MPV 10.5 H Neut % (Auto) Lymph % (Auto) Lymph # (Auto) [place] # (Auto) Lymphocytes % 9 L Absolute Neutrophils VBG Lactic Acid 4.0 H* Sodium 131 L Carbon Dioxide 19 L Glucose 336 H Hemoglobin A1c Calcium Total Bilirubin 1.3 H AST ALT Lactate Dehydrogenase C-Reactive Protein Total Protein Albumin Globulin 3.9 H Triglycerides Procalcitonin Urine Appearance Urine Protein Urine Glucose (UA) Urine Ketones Ur Leukocyte Esterase Urine RBC Urine WBC Urine Bacteria Hyaline Casts Urine Mucus Meds: Medications Acetaminophen (Tylenol) 650 mg PO Q4-6HP PRN; Protocol PRN Reason: Per Pain Protocol/Fever > 101 Last Admin: 06/24/20 09:31 Dose: 650 mg Documented by: Bisacodyl (Dulcolax) 10 mg [place] Q2-3DAYS PRN PRN Reason: Constipation Dextrose (Dextrose 50%) 0 ml IV UD PRN PRN Reason: Hypoglycemia Diagnostic Test (Pha) (Accu-Chek) 1 each FS ACHS [facility] Last Admin: 06/24/20 07:19 Dose: 1 each Documented by: Docusate Sodium (Colace) 100 mg PO BID [facility] Last Admin: 06/24/20 08:22 Dose: 100 mg Documented by: Fluticasone Propionate (Flonase) 2 spray NS QDAY [facility] Last Admin: 06/24/20 08:07 Dose: Not Given Documented by: Glucose (Insta-Glucose) 15 gm PO PRN PRN PRN Reason: Hypoglycemia Heparin Sodium (Porcine) (Heparin) 5,000 unit SQ Q12 [facility] Last Admin: 06/24/20 08:07 Dose: 5,000 unit Documented by: Potassium Chloride 40 meq/ (Dextrose) 520 mls @ 130 mls/hr IV UD PRN PRN Reason: K+ = or < 3.5 Magnesium Sulfate (Magnesium Sulfate) 2 gm in 50 mls @ 50 mls/hr IV UD PRN PRN Reason: MG = or < 1.7 Sodium Chloride (Sodium Chloride 0.9%) 1,000 mls @ 50 mls/hr IV .Q20H [facility] Stop: 06/26/20 01:53 Last Infusion: 06/23/20 18:00 Dose: 50 mls/hr Documented by: Levofloxacin (Levaquin) 750 mg in 150 mls @ 100 mls/hr IV DAILY@1000 [facility]; Protocol Last Admin: 06/24/20 09:30 Dose: 100 mls/hr Documented by: Ceftriaxone Sodium 2 gm/ (Dextrose) 50 mls @ 100 mls/hr IV DAILY [facility]; Protocol Last Admin: 06/24/20 08:07 Dose: 100 mls/hr Documented by: Sodium Chloride (Sodium Chloride 0.9%) 250 mls @ 20 mls/hr IV .[id number] [facility] Last Admin: 06/24/20 03:25 Dose: Not Given Documented by: Acetaminophen (Ofirmev) 650 mg in 65 mls @ 130 mls/hr IV Q6HP PRN; Protocol PRN Reason: Per Pain Protocol/Fever > 101 Insulin Human Lispro (Humalog) 0 unit SQ ACHS [facility]; Protocol Last Admin: 06/24/20 08:07 Dose: 1 unit Documented by: Iron Carb/Multivit/[place]/Folic Acid (Multivitamin W/Minerals) 1 tab PO DAILY [facility] Last Admin: 06/24/20 08:07 Dose: 1 tab Documented by: Loratadine (Claritin) 10 mg PO DAILY [facility] Last Admin: 06/24/20 08:09 Dose: 10 mg Documented by: Melatonin (Melatonin 3mg Tablet) 3 mg PO HSP PRN PRN Reason: Insomnia Metformin HCl (Glucophage) 500 mg PO BIDCC [facility] Ondansetron HCl (Zofran Odt) 4 mg SL Q4-6HP PRN; Protocol PRN Reason: Nausea And Vomiting Ondansetron HCl (Zofran) 4 mg IV Q4-6HP PRN; Protocol PRN Reason: Nausea And Vomiting Polyethylene Glycol (Miralax) 17 gm PO DAILYP PRN PRN Reason: Constipation Last Admin: 06/24/20 09:59 Dose: 17 gm Documented by: Potassium Chloride (Klor-Con) 40 meq PO DAILYP PRN PRN Reason: K+ < 3.5 Senna/Docusate Sodium (Senna Plus Tablet) 1 tab PO HS [facility] Last Admin: 06/23/20 20:05 Dose: Not Given Documented by: Sodium Chloride (Saline Flush) 10 ml IV Q8 [facility] Last Admin: 06/24/20 05:48 Dose: 10 ml Documented by: A/P Narrative A/P Narrative: * Severe sepsis with endorgan dysfunction with elevated creatinine/bilirubin/tachycardia. Clinically improved. Continue antibiotic coverage * Complicated UTI/pyelonephritis, no evidence of obstructive uropathy on renal ultrasound. Responding well to antibiotic coverage * Elevated bilirubin/elevated creatinine secondary to sepsis endorgan dysfunction * DM type II newly diagnosed. A1c 7.8. Metformin/start CC diet * prophylaxis Heparin Plan * Antibiotic coverage * Metformin/CC diet * Monitor renal function * PT OT nutrition support * Discharge planning likely in 24 to 48 hours * Transfer to medical floor Time Spent With Patient Time: Total time spent is greater than 50% in coordination of care (as documented) at patient's floor/unit and/or counseling patient: QUALITY VTE Deep Vein Thrombosis/Pulmonary Embolism Present on Admission: No
[2020-06-24] MEDS: 0.9 % SODIUM CHLORIDE 1,000 ML IV SCH ×3 (11:04→17:54)
[2020-06-24] MEDS ORDERED: DEXTROSE 31 GM ORAL.SUSP PO PRN (11:06)
[2020-06-24] MEDS ORDERED: ACETAMINOPHEN 650 MG/65 ML BAG IV PRN (11:06)
[2020-06-24] MEDS ORDERED: 0.9 % SODIUM CHLORIDE 250 ML IV SCH (11:06)
[2020-06-24] MEDS ORDERED: ONDANSETRON 4 MG ODT TABLET SL PRN (11:06)
[2020-06-24] MEDS ORDERED: MAGNESIUM SULFATE 2 GM/50 ML BAG IV PRN (11:06)
[2020-06-24] MEDS ORDERED: POLYETHYLENE GLYCOL 3350 17 GM PACKET PO PRN (11:06)
[2020-06-24] MEDS ORDERED: DEXTROSE 50% 50 ML VIAL IV PRN (11:06)
[2020-06-24] MEDS ORDERED: ONDANSETRON 4 MG/2 ML VIAL IV PRN (11:06)
[2020-06-24] MEDS ORDERED: POTASSIUM CHLORIDE 20 MEQ PACKET PO PRN (11:06)
[2020-06-24] MEDS ORDERED: MELATONIN 3 MG TABLET PO PRN (11:06)
[2020-06-24] MEDS ORDERED: BISACODYL 10 MG SUPP.RECT PR PRN (11:06)
[2020-06-24] MEDS ORDERED: POTASSIUM CHLORIDE 40 MEQ in DEXTROSE 5% IN WATER 500 ML IV PRN (11:06)
[2020-06-24] MEDS: metFORMIN 500 MG TABLET PO SCH (17:54)
[2020-06-24] MEDS ORDERED: DOCUSATE SODIUM 100 MG CAPSULE PO SCH (21:00)
[2020-06-24] MEDS: SENNOSIDES/DOCUSATE SODIUM 1 TAB TABLET PO SCH (21:07)
[2020-06-25] MEDS: 0.9 % SODIUM CHLORIDE 10 ML SYRINGE IV SCH ×3 (05:56→22:00)
[2020-06-25 06:52] LABS: Basophils # (Auto) 0.01 K/mcL (0.00-0.20); Basophils % (Auto) 0.1 % (0.0-2.0); Eosinophils # (Auto) 0.18 K/mcL (0.00-0.70); Eosinophils % (Auto) 1.6 % (0.0-7.0); Hematocrit 37.5 % (41.0-55.0); Hemoglobin 12.3 g/dL (13.5-16.5); Lymphocytes # (Auto) 0.91 K/mcL (1.50-4.80); Lymphocytes % (Auto) 8.1 % (15.0-49.0); Mean Cell Volume 91.5 fL (80.0-100.0); Mean Corpuscular HGB Conc 32.8 g/dL (31.0-36.0); Mean Platelet Volume 10.8 fL (7.4-10.4); Monocytes % (Auto) 9.8 % (1.0-12.0); Neutrophils % (Auto) 80.4 % (38.0-78.0); Platelet Count 204 K/mcL (140-440); Red Cell Distribution Width 12.8 % (11.5-14.5); WBC 11.2 K/mcL (4.5-11.0)
--- NOTE | 2020-06-25 06:54 | XRay Report ---
INDICATION: Interval Change TECHNIQUE: AP portable semiupright chest x-ray COMPARISON: Previous chest x-ray dated 11/01/2018 FINDINGS: Lungs:There is interstitial abnormality which is new since previous examination. The interstitial pulmonary edema. Interstitial pneumonia including covid pneumonia is possible. Heart, vascular:No significant cardiomegaly. Pulmonary vascularity is normal. Mediastinum, justyn:No mediastinal widening. No hilar mass Pleura:No pleural fluid. No pleural-based mass or calcification Skeletal:Negative. IMPRESSION: 1. Interstitial abnormality is new since 11/01/2018 2. Findings may be secondary to interstitial edema or pneumonia Interpreted and Authenticated by: Rolf Mixon 06/25/20
[2020-06-25 07:22] LABS: ALT/SGPT 34 U/L (<40); AST/SGOT 26 U/L (<40); Albumin 2.8 gm/dL (3.2-5.2); Albumin/Globulin Ratio 0.8 (1.0-2.3); Alkaline Phosphatase 90 U/L (39-117); Bilirubin,Direct < 0.2 mg/dL (<0.3); Bilirubin,Total 0.4 mg/dL (0.1-1.0); Blood Urea Nitrogen 13 mg/dL (8-23); Calcium 8.5 mg/dL (8.6-10.4); Carbon Dioxide 23 mmol/L (22-30); Chloride 102 mmol/L (96-108); Globulin 3.4 gm/dL (2.2-3.7); Glomerular Filtration Rate 85; Glucose 176 mg/dL (70-105); Lactate Dehydrogenase 178 U/L (135-225); Phosphorous 1.4 mg/dL (2.5-4.5); Triglycerides 277 mg/dL (<150); Uric Acid 3.8 mg/dL (2.5-8.0)
[2020-06-25] MEDS: 0.9 % SODIUM CHLORIDE 1,000 ML IV SCH ×2 (07:51→13:00)
[2020-06-25] MEDS: LORATADINE 10 MG TABLET PO SCH (07:52)
[2020-06-25] MEDS: MULTIVIT,THER IRON,CA,FA & MIN 1 TABLET PO SCH (07:52)
[2020-06-25] MEDS: VITAMIN B COMPLEX 1 CAPSULE PO SCH (07:52)
[2020-06-25] MEDS: metFORMIN 500 MG TABLET PO SCH ×2 (07:52→17:20)
[2020-06-25] MEDS: DOCUSATE SODIUM 100 MG CAPSULE PO SCH (07:52)
[2020-06-25] MEDS: cefTRIAXone 2 GM in DEXTROSE 5% IN WATER 50 ML IV SCH (07:53)
[2020-06-25] MEDS: HEPARIN 5,000 UNIT/ML VIAL SQ SCH ×2 (07:53→20:35)
[2020-06-25] MEDS: ACETAMINOPHEN 325 MG TABLET PO PRN ×2 (07:54→20:57)
[2020-06-25] MEDS: FLUTICASONE PROPIONATE SPRAY.NAS NS SCH (08:35)
[2020-06-25] MEDS: INSULIN LISPRO 1 UNIT/0.01 ML UNIT SQ SCH ×4 (09:49→20:59)
[2020-06-25] MEDS: LEVOFLOXACIN 750 MG/150 ML BAG IV SCH (11:16)
[2020-06-25] MEDS: NEUTRA PHOS 1 PACKET PO SCH ×2 (11:16→20:31)
--- NOTE | 2020-06-25 12:03 | Internal Med Progress Note ---
SUBJECTIVE Subjective Patient information: Note initiated : 06/25/20 at 12:02 pm Service Date, if different from initiated Date: [] Patient: Zeyad Pack a 79 y/o M admitted on 06/23/20 for Possible UTI, Elevated HR, Sent From [facility].. Chief Complaint: [] Interval history: History of present illness: Mr. Pack is a 79 year old M who lives with his in [place] and has been fairly healthy at baseline. He was evaluated in the ER on 06/20 with complaints of urine retention/constipation which resolved following enema. Patient was discharged home however over the last couple of days he has noted increasing dysuria/urinary frequency along with fever associated with intense rigors/sweats and chills. Symptoms progressed with generalized malaise/lethargic/fatigued and associated loss of appetite. Patient presents to the ER for further evaluation after he was seen at primary care physician's office hypotensive febrile tachycardic with signs suggestive of sepsis During initial evaluation in the ER patient was noted to be tachycardic and mid 140s. White count 22,000, lactic acid 4.5, sodium 131 and creatinine 1.1 along with blood sugar 336. UA significant for pyuria Patient was started on antibiotics after cultures were drawn. Crystalloids were administered. Subsequently hospitalist service was consulted for admission At the time of my evaluation patient is alert and oriented. He is much more alert and feels better after crystalloid boluses and antibiotics. He was able to endorse history as above. He feels that the catheterization during the ER visit led to his urine infection. He denies prior obstructive uropathy/urinary stone/prostate issues or difficulty urination. He denies weight loss, rash, joint pain headache or photophobia 06/24-patient doing better. T-max 101. On antibiotic coverage. Blood pressures at goal. No telemetry events. A1c 7.8. Started on Metformin. No evidence of obstructive uropathy on abdominal imaging. Transition to medical floor. Continue antibiotic coverage/therapy/dietary interventions. Improved white count at 16.9 from 22, lactate normalized, creatinine down from 1.12.9. Cultures negative so far. 06/25-patient doing a lot better. White count down to 16,000 911,200. Abdominal pain resolved. T-max 101. Phosphorus 1.4 on replacement, LFTs normalized, pansensitive E. coli on cultures. Continue Rocephin. Anticipate discharge in 24 hours Constitutional Vitals: Vital Signs Temp Pulse Resp BP Pulse Ox 99.2 F H 86 14 131/80 93 06/25/20 07:07 06/25/20 08:00 06/25/20 08:00 06/25/20 07:07 06/25/20 08:00 Period Temp Pulse Resp BP Sys/Duong Pulse Ox Last 24 Hr 98.5 F-99.9 F 80-86 12-16 112-131/66-80 93-95 Intake and Output 06/24/20 06/25/20 06/25/20 21:59 05:59 13:59 Intake Total 542 500 420 Output Total 350 250 Balance 192 250 420 Weight 112.899 kg Resting comfortably Nonlabored breathing Nondistended nontender abdomen No lymphedema Intake & Output: Intake & Output 06/24/20 06/25/20 06/25/20 21:59 05:59 13:59 Intake Total 542 500 420 Output Total 350 250 Balance 192 250 420 Weight 112.899 kg Intake: IV 142 Sodium Chloride 0.9% 1,000 ml @ 142 50 mls/hr IV .Q20H [facility] Rx#: [id number] Oral 400 500 420 Output: Void Amount 350 250 Other: Meal Dinner Percent of Meal Consumed 100% Feeding Ability Independent Urine Appearance Clear Clear Urine Color Bright Yellow Bright Yellow Urine Odor Normal # Voids 1 OBJ DATA Labs CBC & Chem 7: 06/25/20 05:11 06/25/20 05:11 Labs: Abnormal Lab Results 06/25/20 06/25/20 06/24/20 05:11 05:11 04:59 WBC 11.2 H RBC 4.10 L Hgb 12.3 L Hct 37.5 L MPV 10.8 H Neut % (Auto) 80.4 H Lymph % (Auto) 8.1 L Lymph # (Auto) 0.91 L [place] # (Auto) 1.10 H Lymphocytes % Absolute Neutrophils 8.98 H VBG Lactic Acid Sodium Carbon Dioxide 20 L Glucose 176 H 168 H Hemoglobin A1c Calcium 8.5 L 8.4 L Phosphorus 1.4 L Total Bilirubin AST 47 H ALT 47 H Lactate Dehydrogenase 226 H C-Reactive Protein Total Protein 5.5 L Albumin 2.8 L 2.9 L Globulin Albumin/Globulin Ratio 0.8 L Triglycerides 277 H 197 H Procalcitonin Urine Appearance Urine Protein Urine Glucose (UA) Urine Ketones Ur Leukocyte Esterase Urine RBC Urine WBC Urine Bacteria Hyaline Casts Urine Mucus 06/24/20 06/23/20 06/23/20 04:59 11:10 10:47 WBC 16.9 H RBC 4.32 L Hgb 13.2 L Hct 39.9 L MPV 10.5 H Neut % (Auto) 88.0 H Lymph % (Auto) 6.2 L Lymph # (Auto) 1.05 L [place] # (Auto) 0.94 H Lymphocytes % Absolute Neutrophils 14.88 H VBG Lactic Acid Sodium Carbon Dioxide Glucose Hemoglobin A1c Calcium Phosphorus Total Bilirubin AST ALT Lactate Dehydrogenase C-Reactive Protein Total Protein Albumin Globulin Albumin/Globulin Ratio Triglycerides Procalcitonin 5.40 H Urine Appearance Hazy A Urine Protein 100 A Urine Glucose (UA) >=500 A Urine Ketones 20 A Ur Leukocyte Esterase 75 A Urine RBC 11 H Urine WBC > 182 H Urine Bacteria Many A Hyaline Casts 39 H Urine Mucus Many A 06/23/20 06/23/20 06/23/20 09:41 09:41 09:41 WBC RBC Hgb Hct MPV Neut % (Auto) Lymph % (Auto) Lymph # (Auto) [place] # (Auto) Lymphocytes % Absolute Neutrophils VBG Lactic Acid 4.0 H* Sodium Carbon Dioxide Glucose Hemoglobin A1c 7.8 H Calcium Phosphorus Total Bilirubin AST ALT Lactate Dehydrogenase C-Reactive Protein 39.30 H Total Protein Albumin Globulin Albumin/Globulin Ratio Triglycerides Procalcitonin Urine Appearance Urine Protein Urine Glucose (UA) Urine Ketones Ur Leukocyte Esterase Urine RBC Urine WBC Urine Bacteria Hyaline Casts Urine Mucus 06/23/20 06/23/20 09:41 09:41 WBC 22.1 H RBC Hgb Hct MPV 10.5 H Neut % (Auto) Lymph % (Auto) Lymph # (Auto) [place] # (Auto) Lymphocytes % 9 L Absolute Neutrophils VBG Lactic Acid Sodium 131 L Carbon Dioxide 19 L Glucose 336 H Hemoglobin A1c Calcium Phosphorus Total Bilirubin 1.3 H AST ALT Lactate Dehydrogenase C-Reactive Protein Total Protein Albumin Globulin 3.9 H Albumin/Globulin Ratio Triglycerides Procalcitonin Urine Appearance Urine Protein Urine Glucose (UA) Urine Ketones Ur Leukocyte Esterase Urine RBC Urine WBC Urine Bacteria Hyaline Casts Urine Mucus Meds: Medications Acetaminophen (Tylenol) 650 mg PO Q4-6HP PRN; Protocol PRN Reason: Per Pain Protocol/Fever > 101 Last Admin: 06/25/20 07:54 Dose: 650 mg Documented by: Bisacodyl (Dulcolax) 10 mg [place] Q2-3DAYS PRN PRN Reason: Constipation Dextrose (Dextrose 50%) 0 ml IV UD PRN PRN Reason: Hypoglycemia Diagnostic Test (Pha) (Accu-Chek) 1 each FS ACHS [facility] Last Admin: 06/25/20 11:46 Dose: 1 each Documented by: Docusate Sodium (Colace) 300 mg PO DAILY [facility] Last Admin: 06/25/20 07:52 Dose: 300 mg Documented by: Fluticasone Propionate (Flonase) 2 spray NS QDAY [facility] Last Admin: 06/25/20 08:35 Dose: Not Given Documented by: Glucose (Insta-Glucose) 15 gm PO PRN PRN PRN Reason: Hypoglycemia Heparin Sodium (Porcine) (Heparin) 5,000 unit SQ Q12 [facility] Last Admin: 06/25/20 07:53 Dose: 5,000 unit Documented by: Ceftriaxone Sodium 2 gm/ (Dextrose) 50 mls @ 100 mls/hr IV DAILY [facility]; Protocol Last Admin: 06/25/20 07:53 Dose: 100 mls/hr Documented by: Levofloxacin (Levaquin) 750 mg in 150 mls @ 100 mls/hr IV DAILY@1000 [facility]; Protocol Last Admin: 06/25/20 11:16 Dose: 100 mls/hr Documented by: Magnesium Sulfate (Magnesium Sulfate) 2 gm in 50 mls @ 50 mls/hr IV UD PRN PRN Reason: MG = or < 1.7 Potassium Chloride 40 meq/ (Dextrose) 520 mls @ 130 mls/hr IV UD PRN PRN Reason: K+ = or < 3.5 Sodium Chloride (Sodium Chloride 0.9%) 1,000 mls @ 50 mls/hr IV .Q20H [facility] Stop: 06/26/20 23:05 Last Admin: 06/25/20 07:51 Dose: Not Given Documented by: Acetaminophen (Ofirmev) 650 mg in 65 mls @ 130 mls/hr IV Q6HP PRN; Protocol PRN Reason: Per Pain Protocol/Fever > 101 Insulin Human Lispro (Humalog) 0 unit SQ ACHS [facility]; Protocol Last Admin: 06/25/20 09:49 Dose: 2 unit Documented by: Iron Carb/Multivit/[place]/Folic Acid (Multivitamin W/Minerals) 1 tab PO DAILY [facility] Last Admin: 06/25/20 07:52 Dose: 1 tab Documented by: Loratadine (Claritin) 10 mg PO DAILY [facility] Last Admin: 06/25/20 07:52 Dose: 10 mg Documented by: Melatonin (Melatonin 3mg Tablet) 3 mg PO HSP PRN PRN Reason: Insomnia Metformin HCl (Glucophage) 500 mg PO BIDCC [facility] Last Admin: 06/25/20 07:52 Dose: 500 mg Documented by: Ondansetron HCl (Zofran Odt) 4 mg SL Q4-6HP PRN; Protocol PRN Reason: Nausea And Vomiting Ondansetron HCl (Zofran) 4 mg IV Q4-6HP PRN; Protocol PRN Reason: Nausea And Vomiting Polyethylene Glycol (Miralax) 17 gm PO DAILYP PRN PRN Reason: Constipation Potassium Chloride (Klor-Con) 40 meq PO DAILYP PRN PRN Reason: K+ < 3.5 Potassium/Phosphorus/Sodium (Neutra Phos) 2 packet PO BID [facility] Stop: 06/26/20 21:01 Last Admin: 06/25/20 11:16 Dose: 2 packet Documented by: Senna/Docusate Sodium (Senna Plus Tablet) 1 tab PO HS [facility] Last Admin: 06/24/20 21:07 Dose: 1 tab Documented by: Sodium Chloride (Saline Flush) 10 ml IV Q8 [facility] Last Admin: 06/25/20 05:56 Dose: Not Given Documented by: Vitamin B Complex (Vitamin B Complex) 1 cap PO DAILY [facility] Last Admin: 06/25/20 07:52 Dose: 1 cap Documented by: A/P Narrative A/P Narrative: * Severe sepsis with endorgan dysfunction with elevated creatinine/bilirubin/tachycardia. Clinical resolution noted. White count normalized. Stable hemodynamics. * Complicated E. coli UTI/pyelonephritis, clinically improving on Rocephin. Target 10 days antibiotic * Elevated LFTs/bilirubin/[place] secondary to sepsis endorgan dysfunction- clinically resolved * DM type II newly diagnosed. A1c 7.8. Continue CC diet/Metformin * prophylaxis Heparin Plan * Continue antibiotic for 10 days * Monitor renal function * PT OT nutrition support * Discharge planning likely home in 24 hours Time Spent With Patient Time: Total time spent is greater than 50% in coordination of care (as documented) at patient's floor/unit and/or counseling patient: QUALITY VTE Deep Vein Thrombosis/Pulmonary Embolism Present on Admission: No
[2020-06-25] MEDS: SENNOSIDES/DOCUSATE SODIUM 1 TAB TABLET PO SCH (20:33)
[2020-06-26] MEDS: 0.9 % SODIUM CHLORIDE 10 ML SYRINGE IV SCH (06:26)
[2020-06-26 06:48] LABS: Basophils # (Auto) 0.03 K/mcL (0.00-0.20); Basophils % (Auto) 0.3 % (0.0-2.0); Eosinophils # (Auto) 0.16 K/mcL (0.00-0.70); Eosinophils % (Auto) 1.8 % (0.0-7.0); Hematocrit 40.6 % (41.0-55.0); Hemoglobin 13.1 g/dL (13.5-16.5); Lymphocytes # (Auto) 1.09 K/mcL (1.50-4.80); Lymphocytes % (Auto) 12.2 % (15.0-49.0); Mean Cell Volume 92.5 fL (80.0-100.0); Mean Corpuscular HGB Conc 32.3 g/dL (31.0-36.0); Monocytes # (Auto) 1.08 K/mcL (0.10-0.90); Monocytes % (Auto) 12.1 % (1.0-12.0); Neutrophils % (Auto) 73.6 % (38.0-78.0); Platelet Count 211 K/mcL (140-440); RBC 4.39 M/mcL (4.50-5.90); WBC 8.9 K/mcL (4.5-11.0)
[2020-06-26 07:28] LABS: ALT/SGPT 27 U/L (<40); AST/SGOT 20 U/L (<40); Albumin 2.6 gm/dL (3.2-5.2); Albumin/Globulin Ratio 0.8 (1.0-2.3); Alkaline Phosphatase 83 U/L (39-117); Bilirubin,Direct < 0.2 mg/dL (<0.3); Bilirubin,Total 0.3 mg/dL (0.1-1.0); Blood Urea Nitrogen 12 mg/dL (8-23); Calcium 8.4 mg/dL (8.6-10.4); Carbon Dioxide 21 mmol/L (22-30); Chloride 105 mmol/L (96-108); Globulin 3.3 gm/dL (2.2-3.7); Glomerular Filtration Rate 96; Glucose 150 mg/dL (70-105); Lactate Dehydrogenase 163 U/L (135-225); Phosphorous 2.9 mg/dL (2.5-4.5); Triglycerides 292 mg/dL (<150); Uric Acid 3.7 mg/dL (2.5-8.0)
[2020-06-26] MEDS: cefTRIAXone 2 GM in DEXTROSE 5% IN WATER 50 ML IV SCH (08:00)
[2020-06-26] MEDS: DOCUSATE SODIUM 100 MG CAPSULE PO SCH (08:05)
[2020-06-26] MEDS: MULTIVIT,THER IRON,CA,FA & MIN 1 TABLET PO SCH (08:05)
[2020-06-26] MEDS: VITAMIN B COMPLEX 1 CAPSULE PO SCH (08:06)
[2020-06-26] MEDS: metFORMIN 500 MG TABLET PO SCH (08:06)
[2020-06-26] MEDS: LORATADINE 10 MG TABLET PO SCH (08:06)
[2020-06-26] MEDS: INSULIN LISPRO 1 UNIT/0.01 ML UNIT SQ SCH ×2 (08:06→13:32)
[2020-06-26] MEDS: FLUTICASONE PROPIONATE SPRAY.NAS NS SCH (08:07)
[2020-06-26] MEDS: 0.9 % SODIUM CHLORIDE 1,000 ML IV SCH (08:07)
[2020-06-26] MEDS: HEPARIN 5,000 UNIT/ML VIAL SQ SCH (08:07)
[2020-06-26] MEDS: NEUTRA PHOS 1 PACKET PO SCH (08:08)
[2020-06-26] MEDS: ACETAMINOPHEN 325 MG TABLET PO PRN (09:21)
[2020-06-26] MEDS: LEVOFLOXACIN 750 MG/150 ML BAG IV SCH (10:26)
--- NOTE | 2020-06-26 11:00 | Discharge Summary ---
Discharge Provider Provider Patient information: Note initiated : 06/26/20 at 10:58 am Service Date, if different from initiated Date: [] Patient: Zeyad Pack a 79 y/o M admitted on 06/23/20 for Possible UTI, Elevated HR, Sent From [facility].. Discharge diagnosis * Severe sepsis with endorgan dysfunction with elevated creatinine/bilirubin/tachycardia. Clinical resolution noted. White count normalized. Discharging home on oral antibiotics * Complicated E. coli UTI/pyelonephritis, clinically improving on Rocephin. Continue additional 6 days oral Omnicef * Elevated LFTs/bilirubin/CHEYENNE secondary to sepsis endorgan dysfunction- clinically resolved * DM type II newly diagnosed. A1c 7.8. Blood sugars at goal. Continue CC diet/Metformin Brief hospital course nterval history: History of present illness: Mr. Pack is a 79 year old M who lives with his in [place] and has been fairly healthy at baseline. He was evaluated in the ER on 06/20 with complaints of urine retention/constipation which resolved following enema. Patient was discharged home however over the last couple of days he has noted increasing dysuria/urinary frequency along with fever associated with intense rigors/sweats and chills. Symptoms progressed with generalized malaise/lethargic/fatigued and associated loss of appetite. Patient presents to the ER for further evaluation after he was seen at primary care physician's office hypotensive febrile tachycardic with signs suggestive of sepsis During initial evaluation in the ER patient was noted to be tachycardic and mid 140s. White count 22,000, lactic acid 4.5, sodium 131 and creatinine 1.1 along with blood sugar 336. UA significant for pyuria Patient was started on antibiotics after cultures were drawn. Crystalloids were administered. Subsequently hospitalist service was consulted for admission At the time of my evaluation patient is alert and oriented. He is much more alert and feels better after crystalloid boluses and antibiotics. He was able to endorse history as above. He feels that the catheterization during the ER visit led to his urine infection. He denies prior obstructive uropathy/urinary stone/prostate issues or difficulty urination. He denies weight loss, rash, j oint pain headache or photophobia 06/24-patient doing better. T-max 101. On antibiotic coverage. Blood pressures at goal. No telemetry events. A1c 7.8. Started on Metformin. No evidence of obstructive uropathy on abdominal imaging. Transition to medical floor. Continue antibiotic coverage/therapy/dietary interventions. Improved white count at 16.9 from 22, lactate normalized, creatinine down from 1.12.9. Cultures negative so far. 06/25-patient doing a lot better. White count down to 16,000 911,200. Abdominal pain resolved. T-max 101. Phosphorus 1.4 on replacement, LFTs normalized, pansensitive E. coli on cultures. Continue Rocephin. Anticipate discharge in 24 hours 06/26-patient doing well. No overnight events. No additional concerns per staff. Denies abdominal pain nausea vomiting. White count normalized. Pansensitive E. coli. Discharging home on additional 6 days oral antibiotics. Date of admission: 06/23/20 13:52 Discharge date: 06/26/20 Primary care physician: Yong Gonzalez MD Consults: 06/23/20 12:20 Consult to Physician [CONS] Stat Comment: Consulting Provider: Gerhard Rodriguez Reason For Exam: Physician to Consult Discharge Meds Discharge Medications Home Medications fluticasone propionate 50 mcg/actuation nasal spray,suspension 2 spray INTRANASAL QDAY #16 g 08/01/18 [Rx Confirmed 06/23/20 Last Taken Unknown] omega-3 fatty acids 4,000 mg PO DAILY 03/29/19 [History Confirmed 06/23/20 Last Taken Unknown] vitamin B complex 1 each PO DAILY 03/29/19 [History Confirmed 06/23/20 Last Taken Unknown] acetaminophen 650 mg tablet,extended release 650 mg PO Q12H 02/20/20 [History Confirmed 06/23/20 Last Taken Unknown] loratadine 10 mg capsule 10 mg PO QDAY 05/13/20 [History Confirmed 06/23/20 Last Taken Unknown] Diabetes Health Pack 1 pkg PO DAILY 06/24/20 [History Confirmed 06/24/20 Last Taken Unknown] docusate sodium 300 mg PO DAILY 06/24/20 [History Confirmed 06/24/20 Last Taken Unknown] cefdinir 300 mg PO BID #12 cap 06/26/20 [Rx Last Taken Unknown] metformin 500 mg PO BID #60 tab 06/26/20 [Rx Last Taken Unknown] COURSE Hospital Course Hospital course: . Discharge diagnosis: Pyelonephritis Time Spent with Patient Time attestation: Total time spent providing and/or coordinating discharge services: EXAM Constitutional Vitals: Temp Pulse Resp BP Pulse Ox 98.1 F 83 16 139/83 94 06/26/20 07:49 06/26/20 08:00 06/26/20 08:00 06/26/20 07:49 06/26/20 08:00 Discharge Data Data Completed and Pending Labs on day of discharge: Labs from last 24 hours 06/26/20 06/26/20 05:45 05:45 WBC 8.9 RBC 4.39 L Hgb 13.1 L Hct 40.6 L MCV 92.5 MCH 29.8 MCHC 32.3 RDW 13.0 Plt Count 211 MPV 10.0 Neut % (Auto) 73.6 Lymph % (Auto) 12.2 L [place] % (Auto) 12.1 H Eos % (Auto) 1.8 Baso % (Auto) 0.3 Lymph # (Auto) 1.09 L [place] # (Auto) 1.08 H Eos # (Auto) 0.16 Baso # (Auto) 0.03 Absolute Neutrophils 6.56 Sodium 136 Potassium 3.8 Chloride 105 Carbon Dioxide 21 L Anion Gap 10.0 BUN 12 Creatinine 0.6 L GFR Calculation 96 Glucose 150 H Uric Acid 3.7 Calcium 8.4 L Phosphorus 2.9 Magnesium 2.1 Total Bilirubin 0.3 Direct Bilirubin < 0.2 GGT 59 AST 20 ALT 27 Alkaline Phosphatase 83 Lactate Dehydrogenase 163 Total Protein 5.9 Albumin 2.6 L Globulin 3.3 Albumin/Globulin Ratio 0.8 L Triglycerides 292 H Preliminary micro results at discharge 06/23/20 10:47 Blood Culture - Preliminary Blood 06/23/20 10:55 Blood Culture - Preliminary Blood Discharge Plan Patient/Caregiver Discharge Instructions Activity: increase activity as tolerated Diet: Consistent Carbohydrate Activity Restrictions/Additional Instructions: Continue Omnicef 300 twice daily for the next 6 days Follow-up PCP in 5 to 7 days Continue Metformin twice daily Return to ER if worsening fever chills Prescriptions: New cefdinir 300 MG capsule 300 mg PO BID Qty: 12 RF: 0 metformin 500 mg tablet extended release 24hr 500 mg PO BID Qty: 60 RF: 0 Continued acetaminophen [Tylenol Arthritis Pain] 650 mg tablet extended release 650 mg PO Q12H RF: 0 loratadine 10 mg capsule 10 mg PO QDAY RF: 0 fluticasone propionate [Flonase Allergy Relief] 50 mcg/actuation spray,suspension 2 spray INTRANASAL QDAY Qty: 16 RF: 0 omega-3 fatty acids 1,000 MG capsule 4,000 mg PO DAILY RF: 0 vitamin B complex 1 EACH tablet 1 each PO DAILY RF: 0 Diabetes Health Pack 30-360-1,500 mcg-mg-unit Combo Pack 1 pkg PO DAILY RF: 0 docusate sodium 100 mg Capsule 300 mg PO DAILY RF: 0 Follow Up Plan Follow up with: Yong Gonzalez MD [Primary Care Provider] - Patient Disposition: Home, Self-Care Prognosis: Fair Rehab Potential: Fair I certify that the patient requires SNF services: No Overall status at discharge: patient is progressing back to baseline Discharge Orders: Discharge Order (Routine); Ordered 06/26/20 Ordered By: Gerhard SIM VTE Deep Vein Thrombosis/Pulmonary Embolism Present on Admission: No
== END 2020-06-26 12:44 | disposition home or self-care (01) | DRG 872 ==
LOC: ED 09:26 → ICU 13:50 → MEDSUR 06-24 17:48
PROVIDERS: ADMIT Internal Medicine; ATTEND Internal Medicine